=== PATIENT | female | born 2005 | race Caucasian/White ===

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

== ENCOUNTER 2024-01-26 13:20 | Emergency (ER) | payer OTHER ==
[~2024-01-26] VITALS: Ht 162.6 cm; Wt 72.6 kg
[2024-01-26 13:29] VITALS: BP 124/61; PULSE 94; RESP 16; TEMP 98.9; O2SAT 97
[2024-01-26] MEDS: KETOROLAC 30 MG/ML VIAL IM ONE (14:31)
[2024-01-26 14:55] LABS: APPEARANCE,URINE CLEAR (CLEAR); BILIRUBIN,URINE NEGATIVE (NEGATIVE); BLOOD, URINE NEGATIVE (NEGATIVE); COLOR,URINE YELLOW (YELLOW); LEUKOCYTE ESTERASE ,URINE NEGATIVE (NEGATIVE); NITRITE, URINE NEGATIVE (NEGATIVE); PH,URINE 6.5 (5.0-9.0); PROTEIN,URINE NEGATIVE (NEGATIVE); UGLUCOSE NEGATIVE (NEGATIVE)
[2024-01-26] MEDS ORDERED: BENZ200C4 PO (15:03)
[2024-01-26] MEDS ORDERED: ACET-10509 PO (15:03)
[2024-01-26] MEDS ORDERED: ALBU0.0912 IH (15:03)
[2024-01-26 15:27] VITALS: BP 122/62; PULSE 88; RESP 16; TEMP 98; O2SAT 99
== END 2024-01-26 15:27 | disposition home or self-care (01) ==
LOC: MED 13:20
DX: R05.9 Cough, unspecified (principal); M54.89 Other dorsalgia; Z79.1 Long term (current) use of non-steroidal anti-inflammatories (NSAID); Z79.899 Other long term (current) drug therapy
CPT/HCPCS: 81003; 81025; 96372; 99283; J1885